=== PATIENT | female | born 1940 | race Caucasian/White ===

== ENCOUNTER 2019-09-25 11:43 | Inpatient (IN) | payer OTHER ==
[2019-09-25 14:47] LABS: Basophils % 1.4 % (0-1.3); MPV 7.5 fL (7.6-11.3); RBC Red Blood Cell Count 3.34 M/uL (3.86-4.86)
[2019-09-25 15:41] LABS: ALT/SGPT 24 U/L (12-78); AST/SGOT 33 U/L (15-37); Albumin 3.5 g/dL (3.4-5.0); Alkaline Phosphatase 49 U/L (45-117); BUN Blood Urea Nitrogen 35 mg/dL (7-18); Bicarbonate 23 mmol/L (21-32); Bilirubin Direct < 0.1 mg/dL (0-0.2); Bilirubin Total 0.3 mg/dL (0.2-1.0); Glucose Level 105 mg/dL (74-106); Magnesium 1.8 mg/dL (1.8-2.4); Protein, Total 6.5 g/dL (6.4-8.2); Sodium Level 138 mmol/L (136-145); Uric Acid 3.6 mg/dL (2.6-6.0)
[2019-09-25 15:43] LABS: Potassium 7.4 mmol/L (3.5-5.1)
[2019-09-25] MEDS ORDERED: INSULIN -REGULAR HUMAN 50 UNIT/0.5 ML ML SQ ONE (16:45)
[2019-09-25] MEDS ORDERED: D50W 25 GM/50 ML SYRINGE/VIAL IV ONE (17:00)
[2019-09-25] MEDS ORDERED: ALBUTEROL 2.5 MG/3 ML NEB SOL NEB ONE (17:00)
[2019-09-25] MEDS ORDERED: SOD POLYSTYREN SUL 15 GM/60 ML UCUP PO ONE (17:00)
[2019-09-25] MEDS ORDERED: CALCIUM GLUC 10% INJ 4.65 MEQ in NA CHLORIDE 0.9% 100 ML IV ONE (17:00)
[2019-09-25 17:25] LABS: Urine Appearance CLEAR; Urine Bilirubin NEGATIVE (NEG); Urine Blood NEGATIVE (NEG); Urine Color YELLOW; Urine Glucose NEGATIVE (NEG); Urine Protein NEGATIVE (NEG); Urine Specific Gravity 1.015 (1.005-1.030); Urine Urobilinogen 0.2 mg/dL (0.2-1.0); Urine pH 6.5 (5.0-7.0)
[2019-09-25 17:26] LABS: Urine Microscopic Reflex NO UMIC
[2019-09-25] MEDS: NA CHLORIDE 0.9% 1,000 ML IV SCH (17:35)
[2019-09-25 20:51] LABS: Albumin 3.7 g/dL (3.4-5.0); Bilirubin Total 0.2 mg/dL (0.2-1.0); Protein, Total 6.7 g/dL (6.4-8.2)
--- NOTE | 2019-09-25 20:51 | RAD REPORT ---
EXAM DESCRIPTION: US - Renal Ultrasound-Complete - 09/25/2019 7:06 pm CLINICAL HISTORY: Renal failure COMPARISON: March 2018 FINDINGS: The right kidney measures 10.4 x 4.7 x 4.1 cm. The left kidney measures 9.8 x 5.1 x 3.7 c m. Cortical thickness is normal. Increased cortical echogenicity present consistent with medical james l disease. No hydronephrosis or suspicious renal mass. Left renal cysts are present. Largest is 6 cm similar to comparison. Bladder was mostly contracted. Assessment was limited. IMPRESSION: No hydronephrosis or suspicious renal mass. Underlying medical renal disease is present in both kidneys. No cortical thinning seen. Left renal cysts largest at 6 cm similar to comparison.
[2019-09-25 20:54] LABS: Potassium 6.4 mmol/L (3.5-5.1)
[2019-09-25] MEDS ORDERED: FUROSEMIDE 20 MG/ 2ML VIAL IV ONE (21:06)
[2019-09-25] MEDS ORDERED: D50W 25 GM/50 ML SYRINGE/VIAL IV PRN (21:07)
[2019-09-25] MEDS ORDERED: ALBUTEROL 2.5 MG/3 ML NEB SOL NEB STA (21:07)
[2019-09-25] MEDS ORDERED: SOD POLYSTYREN SUL 15 GM/60 ML UCUP PO STA (21:07)
[2019-09-25] MEDS ORDERED: D50W 25 GM/50 ML SYRINGE/VIAL IV STA (21:07)
[2019-09-25] MEDS ORDERED: GLUCAGON 1 MG/VIAL IM PRN (21:07)
[2019-09-25] MEDS ORDERED: INSULIN -REGULAR HUMAN 50 UNIT/0.5 ML ML SQ STA (21:07)
--- NOTE | 2019-09-25 23:11 | HP ---
Date of Admission: 09/25/2019 Entrance Complaint: Abnormal blood work, increased potassium and creatinine. History Of Present Illness: Patient was seen in the office about a week to 10 days ago and had some discomfort in her right hand with differential diagnosis of my part of whether was a gout or rheumato id arthritis and she was sent for blood work, which she did the day prior to be notified that her cre atinine was slightly elevated at 2.4, however, potassium was in the 6 range. She was therefore sent back over to the hospital lab for any acute reading and potassium came back on upper 6 level, so I de cided to admit her for more intensive care. According to the patient, only other symptom she had is some slight nausea. Past Medical History: Significant for non-Hodgkin lymphoma, diagnosed a couple years ago and followe d at [facility]. She was treated with medication. She has been doing quite well. Her diabetes is also under good control with the past few years of metformin and her blood pressure as well. She has been on possibility. Social History: Nonsmoker, nondrinker. Family History: Noncontributory. Physical Examination: General: Patient is a slightly obese, elderly female, in no acute distress. Vital Signs: Stable vital signs. Head and Neck: Normocephalic. Pupils equal, reactive to light and accommodation. Fundi negative. Trachea midline. Thyroid not palpable. ENT: Negative. Chest: Clear to P and A. Cardiovascular: PMI in midclavicular line. Heart sounds normal. Peripheral pulses present and equa l bilaterally. Abdomen: No organomegaly. No tenderness. Extremities: Good tone and movement bilaterally. Reflexes physiologic. Rectal: Deferred. Pelvic: Deferred. Impression: Hyperkalemia; acute on chronic renal failure; wvs-afysyst-awvfraaei diabetes mellitus, g ood control; hypertension, good control. Plan: Patient will be admitted depending on the underlying blood results, treatment will be institut ed. Nephrology has been consulted as well as Cardiology. HR/MODL Voice ID: [id number]
[2019-09-26 04:37] LABS: Albumin 3.4 g/dL (3.4-5.0); Bilirubin Total 0.3 mg/dL (0.2-1.0); Potassium 5.4 mmol/L (3.5-5.1); Protein, Total 6.2 g/dL (6.4-8.2)
[2019-09-26 04:43] LABS: Basophils % 0.3 % (0-1.3); Hematocrit 33.7 % (36.0-45.0); Lymphocytes % 20.7 % (15.3-44.8); MPV 7.2 fL (7.6-11.3); RBC Red Blood Cell Count 3.38 M/uL (3.86-4.86)
[2019-09-26] MEDS ORDERED: ONDANSETRON 4 MG/2 ML VIAL ONE (04:52)
[2019-09-26] MEDS ORDERED: ONDANSETRON 4 MG/2 ML VIAL IV PRN (05:28)
[2019-09-26] MEDS: NA CHLORIDE 0.9% 1,000 ML IV SCH ×2 (06:29→22:47)
--- NOTE | 2019-09-26 14:47 | RAD REPORT ---
EXAM DESCRIPTION: [facility] Single View09/26/2019 2:29 pm CLINICAL HISTORY: Shortness of breath COMPARISON: none FINDINGS: Left lateral base is hazy. The right lung is clear. The heart is borderline enlarged IMPRESSION: Left lateral base is hazy which may indicate small pleural effusion or mild atelectasis/ infiltrate
[2019-09-26 16:22] LABS: Urine Appearance CLEAR; Urine Bilirubin NEGATIVE (NEG); Urine Blood NEGATIVE (NEG); Urine Color YELLOW; Urine Glucose NEGATIVE (NEG); Urine Protein NEGATIVE (NEG); Urine Specific Gravity 1.015 (1.005-1.030); Urine Urobilinogen 0.2 mg/dL (0.2-1.0)
[2019-09-26 16:28] LABS: Urine Microscopic Reflex NO UMIC
[2019-09-26 16:30] LABS: Urine Protein/Creatinine Ratio 0.12 ratio (<0.15)
--- NOTE | 2019-09-26 17:08 | PN ---
Date of Progress Note: 09/26/2019 Patient feels much better today. Her colon size with her improvement in creatinine and potassium. A logical factor more than likely related to the medication, possibly set up by the prior chemotherapy with cardiomyopathy. In any event, feels she could be transferred to the floor care and continue to monitor. HR/MODL Voice ID: [id number] Report ID: [id number]
--- NOTE | 2019-09-27 00:57 | CON ---
Date of Consultation: 09/26/2019 Consulting Physician: Dr. Giang. Reason For Consultation: Elevated BUN and creatinine, hyperkalemia. History Of Present Illness: This is a 79-year-old female with a significant past medical history of hypertension, non-Hodgkin lymphoma, on treatment on admission loss followup with the MD Marcum back in August with remission. Patient had chronic kidney disease, baseline creatinine back in [facility] r 2019 1.4. Patient had recurrent hyperkalemia. Patient had multiple exposure to contrast during followup for non-Hodgkin lymphoma and could be that is what makes her with chronic kidney disease, as I mentioned, creatinine 1.4. Apparently, the patient was in her regular state of health, went to Dr. Giang office with complaint of hand pain. At that time, primary workup show again hyperkalemia with elevated BUN and creatinine. For that reason, patient was sent to the ER. In the ER, potassiu m was elevated up to above 7 with creatinine above 3. Patient was admitted. Over the night, we star t aggressive hydration with recurrent doses of Kayexalate. Potassium down to 5.4, creatinine down to the 2s. Patient denied taking any nonsteroidal, no recent IV contrast. Apparently, the patient at home on spironolactone, Lasix, and CLAUDE inhibitor. Past Medical History: Include 1.Non-Hodgkin lymphoma. 2.Chronic kidney disease, baseline creatinine 1.4. 3.Hypertension. 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 Social History: Denies smoking. Denies drinking. Denies drug abuse. Family History: Positive for hypertension. Surgical History: Noncontributory. Review of Systems: Head and Neck: No red eye. No ear pain. GI: No nausea, no vomiting. : No polyuria, no dysuria, no hematuria. [employer]: No vaginal discharge. Respiratory: No shortness of breath. Cardiovascular: No chest pain. Endocrine: No polydipsia. Skin: No rash. Neuro: Has neuropathy. Musculoskeletal: Has hand pain. Physical Examination: Vital Signs: When I saw the patient, blood pressure of 108/95, pulse of 81, afebrile. Chest: Clear to auscultation. Heart: S1, S2. Regular. Abdomen: Soft, nontender. Extremities: No edema. Neurologic: Alert. No focal. Laboratory Data: WBC 9.7, H and H 11/33.7, platelets 172. Sodium 142, potassium 5.4, bicarb 21, BUN is 28, creatinine 2.5, calcium 8.7. Upon admission, creatinine 3.2, GFR of 14. With the potassium 7.4. Current Medications: The patient on include Zofran, insulin and normal saline at 70 per hour. Renal ultrasound showed normal size kidney 10.4/9.8 with left renal cyst of 6 cm. Assessment And Plan: 1.Acute kidney injury on chronic kidney disease secondary to prerenal superimposed with spironolacto ne, Lasix and CLAUDE inhibitor, on recovery phase. I am going to continue hydration and we will monitor the patient. The tumor lysis syndrome has been ruled out as uric acid within normal limit. No leuk ocytosis. Giving the non-Hodgkin lymphoma, we need to rule out Fanconi syndrome. We will send for p rotein, creatinine and I am going to send for urine electrolytes and I am going to send for full sero logy. We will follow up the patient. 2.Hyperkalemia secondary to renal failure, superimposed with CLAUDE inhibitor and spironolactone. Disc ontinue spironolactone, discontinue CLAUDE inhibitor. We will send for protein creatinine, urine electr olyte to rule out any Fanconi syndrome, and we will follow up the patient. Currently, patient receiv ed the treatment. Her potassium close to normal. 3.Non-Hodgkin lymphoma on remission. Follow up with primary. 4.Hypertension, controlled optimal with the presence of acute kidney injury. Hold all blood pressur e medication especially CLAUDE inhibitor, spironolactone and diuresis and we will follow up. BASIL/MARIANNE Voice ID: [id number] Report ID: [id number]
[2019-09-27 05:59] LABS: Albumin 3.2 g/dL (3.4-5.0); Phosphorus 2.9 mg/dL (2.5-4.9); Potassium 4.9 mmol/L (3.5-5.1); Thyroid Stimulating Hormone 1.22 uIU/mL (0.360-3.740)
--- NOTE | 2019-09-27 12:55 | PN ---
Date of Progress Note: 09/27/2019 Patient feels considerably better. She has not moved from ICU due to bed problem on the floor. Ribeiro mohsen, she is capable of doing so. She started some physical therapy. Her blood work is much improved . We will continue to monitor and at this rate she probably be discharged tomorrow. HR/MODL Voice ID: [id number] Report ID: [id number]
[2019-09-27] MEDS: NA CHLORIDE 0.9% 1,000 ML IV SCH (13:11)
--- NOTE | 2019-09-27 18:24 | PN ---
Date of Progress Note: 09/27/2019 History: The patient was admitted with acute kidney injury and hyperkalemia secondary to prerenal sher perimposed with spironolactone, CLAUDE inhibitor. After hydration, hyperkalemia has been resolved. Physical Examination: Vital Signs: Blood pressure 124/92, pulse of 89, afebrile. Patient making good urine of 850. Chest: Clear to auscultation. Heart: S1, S2. Regular. Abdomen: Soft, nontender. Extremities: Trace edema. Laboratory Data: H and H 1133.7. Sodium 140, potassium 4.9, bicarb 21, BUN 17, creatinine 1.4, GFR of 34, calcium 8.7. Phosphorus 2.9. Albumin 3.2. PTH of 99, TSH 1.2. Urinalysis: P-C ratio 0.1, potassium 34. Serology still pending. Current Medications: The patient on include: 1.Zofran. 2.Normal saline. 3.Glucagon. Assessment And Plan: 1.Acute kidney injury. Normal size kidney 10.4/9.8. Secondary to CLAUDE inhibitor, spironolactone, ov er-diuresis. Resolved back to baseline on chronic kidney disease secondary to hypertension, nephrosc lerosis. I am going to discontinue IV fluid. Patient looked to me slightly on the over volume side. We will get a chest x-ray for better evaluation of fluid status of the patient and we will follow u p. We will consider Lasix, and we will follow up. 2.Hypertension, controlled, optimal. Continue current medication. Keep holding spironolactone and CLAUDE inhibitor. 3.Hyperkalemia. Fanconi syndrome has been ruled out. No significant proteinuria. Mostly secondary to spironolactone and CLAUDE inhibitor superimposed with renal failure. We will follow up with the primary. Patient cleared from the renal standpoint to be transferred to the floor. MA/MODL Voice ID: [id number] Report ID: [id number]
--- NOTE | 2019-09-27 18:53 | RAD REPORT ---
EXAM DESCRIPTION: RAD - Chest Single View - 09/27/2019 5:45 pm CLINICAL HISTORY: COPD, shortness of breath COMPARISON: September 26 TECHNIQUE: AP portable chest image was obtained 1743 hour . FINDINGS: Lung volumes are low. No peripheral mass or consolidation. Interstitial pattern matches co mparison. Heart and vasculature are normal. No measurable pleural effusion and no pneumothorax. No ac [place] bony abnormality seen. No acute aortic findings suspected. IMPRESSION: No acute cardiopulmonary process. No significant interval change.
--- NOTE | 2019-09-27 20:31 | CON ---
Date of Consultation: 09/26/2019 Reason For Consultation: Renal failure and hypertension. History Of Present Illness: Ms. Arevalo is 79. She is a patient of Dr. Giang. She has diabetes, h ypertension, dyslipidemia, gout, and history of non-Hodgkin lymphoma that has been cured. She came i n with multiple symptoms, including weakness, nausea, dizziness, shortness of breath and was found to have a creatinine of 3.24 with a potassium of 7.4. The potassium was corrected to 5.4. She had dys pnea, but no chest pain. Denied PND, orthopnea, pedal edema. Had some palpitations, but no syncope. She is already ruled out for UT. Past Medical History: As stated above. Allergies: SHE IS ALLERGIC TO CODEINE. Review of Systems: Negative. Social History: Negative. Family History: Noncontributory. Medications: At home include metformin, lisinopril, Coreg, Lipitor, allopurinol, Demadex, and Aldact one. Physical Examination: General: She was pleasant, in no acute distress. Alert and oriented x3. Vital Signs: Stable. She was afebrile. She was in sinus rhythm. HEENT: Negative. Neck: Supple. No bruit, lymphadenopathy, JVD, or thyromegaly. Chest: Clear to auscultation and percussion. Cardiac: Revealed a regular rhythm and rate with no gallops, murmurs, or rubs. Abdomen: Benign. Extremities: Revealed no clubbing, cyanosis, or edema. Diagnostic Data: As stated earlier. Impression And Plan: 1.Shortness of breath. 2.Renal failure, acute on chronic. 3.Hyperkalemia secondary to renal failure, corrected to 5.4. 4.Diabetes. 5.Hypertension, poorly controlled. 6.Dyslipidemia. 7.Gout. 8.History of non-Hodgkin lymphoma that has been cured. I would like to obtain an echocardiogram on Saturday to rule out cardiomyopathy. She definitely needs to be off her Demadex, Aldactone, lisinopril, and allopurinol for now. We will continue with the Lip itor and metformin, get Renal consultation. We will see how she does over the next 2 days. NB/MODL Voice ID: [id number] Report ID: [id number]
--- NOTE | 2019-09-27 21:00 | PN ---
Date of Progress Note: 09/27/2019 Ms. Arevalo was admitted on 09/25/[address] Giang for renal failure and shortness of breath. Neph rotoxic medications such as allopurinol, lisinopril, Demadex, and Aldactone have been held. Her hype rkalemia has been corrected. Her potassium today is 4.9. Her creatinine is down to 1.48. She is as ymptomatic. Telemetry showed sinus rhythm. I would continue her Coreg, Lipitor, and metformin. She can certainly move to a regular room today. We will see what her echo shows before making final dec isions. PRADIP/MODL Voice ID: [id number] Report ID: [id number]
[2019-09-27 21:08] LABS: Rheumatoid Factor NEG (NEG)
[2019-09-28 05:25] LABS: Albumin 2.9 g/dL (3.4-5.0); Phosphorus 2.8 mg/dL (2.5-4.9); Potassium 4.4 mmol/L (3.5-5.1)
--- NOTE | 2019-09-28 09:26 | PN ---
Date of Progress Note: 09/25/2019 Patient was seen this afternoon where her potassium was now over 7 and creatinine was over 3. In vie w with this, she was transferred to ICU for monitoring and treatment and to be followed by Nephrology and depending on her repeat results in a couple hours after treatment, dialysis may be necessary. F yuliet and patient were informed about this. HR/MODL Voice ID: [id number] Report ID: [id number]
--- NOTE | 2019-09-28 15:22 | ECHO ---
HEIGHT: 5 ft 3 in WEIGHT: 209 lb 14.4 oz DATE OF STUDY: 09/28/[address]: Quirino Perales MD 2-DIMENSIONAL: YES M.MODE: YES DOPPLER: YES COLOR FLOW: YES TDS: NO PORTABLE: YES DEFINITY: NO BUBBLE STUDY: NO DIAGNOSIS: CONGESTIVE HEART FAILURE CARDIAC HISTORY: CATHERIZATION: NO SURGERY: NO PROSTHETIC VALVE: NO PACEMAKER: NO MEASUREMENTS (cm) DIASTOLIC (NORMALS) SYSTOLIC (NORMALS) IVSd 1.1 (0.6-1.2) LA Diam 3.8 (1.9-4.0) LVEF 56% LVIDd 4.5 (3.5-5.7) LVIDs 3.2 (2.0-3.5) %FS 29% LVPWd 1.2 (0.6-1.2) Ao Diam 2.6 (2.0-3.7) 2 DIMENSIONAL ASSESSMENT: RIGHT ATRIUM: NORMAL LEFT ATRIUM: NORMAL RIGHT VENTRICLE: NORMAL LEFT VENTRICLE: NORMAL TRICUSPID VALVE: NORMAL MITRAL VALVE: NORMAL PULMONIC VALVE: NORMAL AORTIC VALVE: NORMAL PERICARDIAL EFFUSION: NONE AORTIC ROOT: NORMAL LEFT VENTRICULAR WALL MOTION: NORMAL. DOPPLER/COLOR FLOW: TRACE OF AORTIC REGURGITATION. COMMENTS: NORMAL 2D ECHO WITH A TRACE OF AORTIC REGURGITATION. TECHNOLOGIST: DIAMOND AVILA
--- NOTE | 2019-09-28 17:54 | RAD REPORT ---
EXAM DESCRIPTION: RAD - Abdomen 1 View (KUB) - 09/28/2019 5:41 pm CLINICAL HISTORY: Abdomen pain. FINDINGS: The cecum measures 11 centimeters. There is mild dilatation of the ascending colon. Air is also present within borderline dilated small bowel. This may represent an adynamic ileus or partial obstruction. Further evaluation with an upright abdominal plain film series recommended
--- NOTE | 2019-09-28 19:56 | PN ---
Date of Progress Note: 09/28/2019 Patient was doing fairly well during most of the day; however, as the day progress she became distend ed, has some loose stools and then anorectic. Her KUB showed possible adynamic ileus. She is tender and distended on examination. Her renal function is fine. She has been cleared to be discharged fr om the renal perspective. However, due to the possibility of the ileus and decreased intake, decided to transfer to floor care, put on some IV fluids. Monitor overnight and repeat the KUB in the [facility] and if negative can try her on some fluids. Possibly discharge in the afternoon if positive and t reat accordingly. HR/MODL Voice ID: [id number] Report ID: [id number]
--- NOTE | 2019-09-29 00:47 | PN ---
Date of Progress Note: 09/28/2019 Chief Complaint: Acute kidney injury associated with hyperkalemia. History Of Present Illness: Patient had ultrasound done and show normal size kidney, left kidney 10.4 cm in length and right kidney 9.8 cm in length. Patient developed hyperkalemia secondary to CLAUDE inhibitor, spironolactone, and diuretic effect. Accelerated acute kidney injury was due to prerenal azotemia, renal hypoperfusion progressing to acute tubular necrosis. Patient today developed some altered mental status. She was obtunded and the patient was found to have severe respiratory acidosis and was started on BiPAP. Review of Systems: This patient is feeling better. She is off BiPAP. Physical Examination: Vital Signs: Blood pressure is 120/90, heart rate 80. Lungs: Clear to auscultation bilaterally. Heart: S1, S2. Abdomen: Soft. Benign. Extremities: Trace edema. Laboratory Data: TSH 1.2. Potassium 4.9, sodium 140, BUN 17, creatinine 1.4. Impression And Plan: 1. Acute kidney injury secondary to nonoliguric acute tubular necrosis and prerenal azotemia. Patient completed IV fluids. Continue p.o. hydration. 2. Patient may need maintenance Lasix secondary to volemic status. 3. Hypertension, control optimal. CLAUDE inhibitor and spironolactone on hold to prevent hyperkalemia. 4. Patient was tested for proteinuria. Patient will follow up with Nephrology outpatient. I spent total 35 min including 25 min to coordinate care plan. JO-ANN/MARIANNE Voice ID: [id number] Report ID: [id number] ANGUS
[2019-09-29] MEDS: NA CHLORIDE 0.9% 1,000 ML IV SCH ×3 (05:38→16:20)
[2019-09-29] MEDS: LEVOTHYROXINE SOD 0.1 MG TAB PO SCH (05:38)
[2019-09-29] MEDS: carvediloL 25 MG TAB PO SCH ×2 (05:38→17:31)
[2019-09-29 06:13] LABS: Albumin 2.7 g/dL (3.4-5.0); Phosphorus 3.3 mg/dL (2.5-4.9); Potassium 4.3 mmol/L (3.5-5.1)
--- NOTE | 2019-09-29 13:43 | P.PN ---
Subjective Date of Service: 09/29/19 Pt with HX of HTN, CHF, DM and CKD Admitted for hyperkalmeia found to have K of 7.4, Cr 3.3 today Pt cr stable , k wnl NPO for possible bowel obstruction F/U repeated KUB will reduce IVF rate will change fluid to D5 NS if jv cont to be nPO Physical exam general: Awake and alert , NAD , obese Neck; Supple, No elevated JVD hear: RRR, normal S1,2 no murmur or rub Chest: CTAB, no rales or wheezes Abdomen: Soft , Nt Extremities No edema Physical Examination - Vital Signs Temperature: 98 F Blood Pressure: 115/59 Pulse: 71 Respirations: 18 Pulse Ox (%): 96 - Studies Laboratory Data (last 24 hrs) 09/29/19 05:06: Sodium 140, Potassium 4.3, BUN 15, Creatinine 1.46 H, Glucose 125 H, Phosphorus 3.3 Assessment And Plan - Plan Anna Marie on CKD due to dehydration and medications SE U: no hydro Cr stable now Cont IVF renal dose meds Hyperkalmeia resolved off CLAUDE and aldactone HTN controlled DM SSI Bowel obstruction F/U repeated KUB surgery evaluation if not resolved Cont IVF for now
--- NOTE | 2019-09-29 14:29 | RAD REPORT ---
EXAM DESCRIPTION: RAD - Abdomen 1 View (KUB) - 09/29/2019 2:15 pm CLINICAL HISTORY: Abdomen pain. FINDINGS: The cecum approximately 12 centimeters. The transverse colon measures 7.4 centimeters. Air is present throughout nondilated left colon and rectum and nondilated small bowel Free air is not seen beneath the diaphragm. This probably represents an adynamic ileus
[2019-09-30 03:29] LABS: HBsAG Nonreactive (Nonreactive)
[2019-09-30 04:23] LABS: Albumin 2.5 g/dL (3.4-5.0); Phosphorus 3.3 mg/dL (2.5-4.9); Potassium 3.4 mmol/L (3.5-5.1)
[2019-09-30] MEDS: NA CHLORIDE 0.9% 1,000 ML IV SCH ×2 (05:40→08:55)
[2019-09-30] MEDS: carvediloL 25 MG TAB PO SCH ×2 (05:59→18:10)
[2019-09-30] MEDS: LEVOTHYROXINE SOD 0.1 MG TAB PO SCH (05:59)
--- NOTE | 2019-09-30 08:10 | RAD REPORT ---
EXAM DESCRIPTION: RAD - Abdomen 1 View (KUB) - 09/30/2019 5:23 am CLINICAL HISTORY: Abdomen pain. FINDINGS: Ascending colon/cecum remains dilated measuring approximately 13 centimeters there is mild dilatation of the transverse colon. Left colon is normal caliber. Air is present within nondilated small bowel These findings likely indicate an adynamic ileus
[2019-09-30 09:34] VITALS: O2SAT 99
[2019-09-30] MEDS ORDERED: NA CHLORIDE 0.9% 500 ML IV SCH ×2 (11:00)
[2019-09-30 17:58] LABS: Hepatitis C Virus RNA (PCR)log <1.18 log IU/mL
[2019-09-30 23:08] LABS: Albumin, (SPE) 3.1 g/dL (3.8-4.8); Alpha-1-Globulins 0.3 g/dL (0.2-0.3); Alpha-2-Globulins 0.8 g/dL (0.5-0.9); Gamma Globulins 0.5 g/dL (0.8-1.7); INTERPRETATION Consistent with
--- NOTE | 2019-10-01 00:13 | PN ---
Date of Progress Note: 09/30/2019 Subjective: Patient was admitted with acute kidney injury, ileus. Today, patient started having bowel movement. Physical Examination: Vital Signs: Blood pressure 123/58, pulse of 73. Had good urine output of 600. Chest: Faint crackles on the base. Heart: S1, S2. Regular. Abdomen: Soft, mild tenderness. Bowel sounds appreciated. Extremities: Trace edema. Neurologic: Alert, oriented. Laboratory Data: H and H .7. Sodium 142; potassium 3.4; bicarb 24; BUN 22; creatinine 1.7, sli ghtly raising; calcium 8.4; phosphorous 3.3. Current Medications: The patient on include carvedilol 25 b.i.d., Zofran, levothyroxine. Assessment And Plan: 1.Acute kidney injury secondary to prerenal, still looked to me on the dry side. I am going to star t the patient on gentle hydration of 50 mL/hour for only 500 and we will continue to monitor the lissa ent. 2.Hypertension, controlled, optimal. Continue current medication. 3.Ileus. Continue current treatment. 4.Hypokalemia. We will supplement. BASIL/MARIANNE Voice ID: [id number] Report ID: [id number]
[2019-10-01] MEDS: LEVOTHYROXINE SOD 0.1 MG TAB PO SCH (03:47)
[2019-10-01] MEDS: carvediloL 25 MG TAB PO SCH (03:47)
[2019-10-01 05:21] LABS: Albumin 2.3 g/dL (3.4-5.0); Phosphorus 3.2 mg/dL (2.5-4.9); Potassium 3.5 mmol/L (3.5-5.1)
[2019-10-01 05:33] VITALS: BMI 35.5
[2019-10-01 08:07] VITALS: TEMP 97.6
--- NOTE | 2019-10-01 09:48 | RAD REPORT ---
EXAM DESCRIPTION: CT - Abdomen Pelvis Wo Contrast - 10/01/2019 9:03 am CLINICAL HISTORY: Rule out small bowel obstruction Abdominal pain COMPARISON: No comparisons TECHNIQUE: Axial [address] imaging of the abdomen and pelvis was performed without IV contrast. No IV contrast was given because of allergy, abnormal renal function, patient refusal or physician re quest. Oral contrast was given. All CT scans are performed using dose optimization technique as appropriate and may include automated exposure control or mA/KV adjustment according to patient size. FINDINGS: No suspicious findings in the lung bases. The liver, spleen and pancreas show no suspicious findings on non-contrast imaging. Gallbladder is no t identified and is either absent or tightly contracted. No biliary tree dilatation. No hydronephrosis or suspicious renal mass. No obstructing or nonobstructing calculi. Several exophyt ic low-density masses project from the left kidney largest 6.7 cm. The show cyst characteristics. Uri nary bladder is tightly contracted limiting detail. No uterus or ovarian abnormality seen. No signifi cant adrenal finding. Isodense renal masses and pyelonephritis cannot be excluded in the absence of I V contrast. The urinary bladder is without significant finding. No gastric dilatation or gastric wall thickening. Stomach is decompressed which limits assessment. Fo od and contrast or mixed within the small gastric lumen. No small bowel obstruction is present. There are no acute small bowel findings. Cecum, ascending colon and delete select transverse colon are distended but not dilated. Maximum diam eter is 7 cm. At the transition with the normal diameter descending colon there is no wall thickening or mass. Sigmoid is mildly tortuous. No free air or pneumatosis. A minimal amount of free fluid collects in the dependent portion of the pelvis. No hernia, mass or bulky lymphadenopathy. No suspicious bony findings. IMPRESSION: No small bowel obstruction or abnormal small bowel finding. From cecum to transverse col on there is distention to 7 cm. At the transition from transverse colon to normal size splenic flexure, there is no mass or wall thic kening. Left renal cysts are present believed to be incidental. Minimal free fluid in the cul de sac likely reactive.
[2019-10-01 12:05] VITALS: BP 110/56
--- NOTE | 2019-10-01 12:56 | PN ---
Date of Progress Note: 09/30/2019 Patient continues to have some abdominal distention, discomfort, and her appetite has improved somewh at. However, when she progressed on her diet, she became distended again. KUB continues to show the same pattern of an adynamic ileus. I will keep her on this dietary restriction and suggestion of Ra diology do a CT scan in the morning. She will continue on some IV fluids as well. Keep her kidneys in good control. HR/MODL Voice ID: [id number] Report ID: [id number]
--- NOTE | 2019-10-01 15:29 | PN ---
Date of Progress Note: 10/01/2019 Subjective: Patient doing better. Has good bowel movement. No shortness of breath. Physical Examination: Vital Signs: Blood pressure 132/59, pulse of 72. General: Patient had good urine output. Chest: Clear to auscultation. Heart: S1, S2. Regular. Abdomen: Soft, nontender. Extremities: No edema. Laboratory Data: WBC 9.7, H and H 11/33.7, platelets 172. Sodium 141, potassium 3.5, bicarb 22, BUN 24, creatinine 1.5, calcium 7.9, phosphorus 3.2. Medications: Current medications the patient on include; 1.Carvedilol 25. 2.Zofran. 3.Levothyroxine. 4.Patient received IV fluid yesterday. Laboratory Data: CT abdomen and pelvis showing distended colon. Renal cyst. Assessment And Plan: 1.Acute kidney injury secondary to prerenal, complicated with hyperkalemia, recovered, back to base line. We will continue to monitor. Keep holding Lasix, CLAUDE inhibitor, and spironolactone for the ti me being. Patient looked to me euvolemic. 2.Hypertension, controlled, optimal. Continue current medication. 3.Gout, stable. 4.Congestive heart failure, currently patient euvolemic. Keep holding spironolactone and Lasix and CLAUDE inhibitor. We will consider rechallenge the patient with those medications starting with the Las ix as outpatient in 2 weeks. The CLAUDE inhibitor, going to allow to be challenged after 6 to 8 weeks. Spironolactone, I do not see any indication for it for the time being. 5.Ileus, as by primary. 6.Hyperkalemia, has been resolved. 7.Renal cyst, stable. Need follow up as outpatient. We reassure the patient. Patient cleared from the renal standpoint for discharge planning. BASIL/MARIANNE Voice ID: [id number] Report ID: [id number]
--- NOTE | 2019-10-01 21:47 | PN ---
Date of Progress Note: 10/01/2019 Patient feels considerably better today, coinciding with a CAT scan which showed much less ileus. Jason eldridge is tolerating her fluids, up and about, feels much more comfortable, and feels she could go home on a full liquid diet with change in medications as far as blood pressure is concerned. We will be mon itoring and hold Aldactone, lisinopril, and metformin as well. She has done quite well on her dietar y restrictions. She is advised to stay on this for 48 hours, gradually increase her solids, return t o clinic on Saturday for a KUB and chemistry profile. HR/MODL Voice ID: [id number] Report ID: [id number]
[2019-10-05 11:47] LABS: Vitamin D 1,25-Dihydroxy Total <8 pg/mL (18-72); Vitamin D,1,25-OH2, D2 <8 pg/mL
== END 2019-10-01 16:01 | disposition home or self-care (01) | DRG 682 ==
LOC: OBSVTOIN 13:29 → 4TH 13:29 → 3RD-ICU 16:12 → 4TH 09-29 09:00
PROVIDERS: ADMIT Family Medicine; ATTEND Family Medicine
DX: N17.0 Acute kidney failure with tubular necrosis (principal); G93.41 Metabolic encephalopathy; I13.0 Hypertensive heart and chronic kidney disease with heart failure and stage 1 through stage 4 chronic kidney disease, or unspecified chronic kidney disease; E87.2 Acidosis; C85.90 Non-Hodgkin lymphoma, unspecified, unspecified site; K56.0 Paralytic ileus; E87.5 Hyperkalemia; N18.3 Chronic kidney disease, stage 3 (moderate); I50.9 Heart failure, unspecified; E11.22 Type 2 diabetes mellitus with diabetic chronic kidney disease; I25.5 Ischemic cardiomyopathy; N28.1 Cyst of kidney, acquired; M10.9 Gout, unspecified
CPT/HCPCS: 36415; 71045; 74018; 74176; 76770; 80048; 80053; 80069; 80076; 81003; 82570; 82652; 82947; 83036; 83520; 83605; 83735; 83935; 83970; 84132; 84156; 84165; 84300; 84443; 84550; 85025; 86021; 86038; 86160; 86225; 86317; 86430; 86704; 86706; 87340; 87522; 93306; 94640; 97116; 97161; 97530; J0610; J1940; J2405; J7030; J7040